=== PATIENT | female | born 1940 | race Caucasian/White ===

== ENCOUNTER 2016-11-28 07:50 | Day surgery (SDC) | payer OTHER ==
[2016-11-23 11:26] VITALS: BMI 23.6
[2016-11-28] MEDS ORDERED: PROPOFOL 20 ML ONE ×2 (07:54)
[2016-11-28 11:12] VITALS: BP 121/63; PULSE 71; TEMP 97.8
== END 2016-11-28 10:20 | disposition home or self-care (01) ==
LOC: FASU-ENDO 07:50
PROVIDERS: ATTEND Internal Medicine Gastroenterology
PROC: 0DJD8ZZ Inspection of Lower Intestinal Tract, Via Natural or Artificial Opening Endoscopic (ICD-10-PCS; principal; 2016-11-28 09:03)
DX: Z12.11 Encounter for screening for malignant neoplasm of colon (principal); Z80.0 Family history of malignant neoplasm of digestive organs; K57.30 Diverticulosis of large intestine without perforation or abscess without bleeding

== ENCOUNTER 2017-02-28 16:29 | Emergency (ER) | payer OTHER ==
[2017-02-28 16:44] VITALS: BP 142/89; PULSE 73; TEMP 97.9; BMI 24.0
[2017-02-28] MEDS ORDERED: ONDANSETRON 4 MG/2 ML VIAL IM ONE (16:58)
[2017-02-28] MEDS ORDERED: MECLIZINE HCL 25 MG TABLET (FP) PO ONE (16:58)
--- NOTE | 2017-02-28 16:59 | PDOC ---
History of Present Illness - General History Source: Patient Exam Limitations: No Limitations - History of Present Illness Initial Comments: 02/28/17 17:28 The patient is a 76 year old female with significant past medical history of vertigo, hypertension, hyperlipidemia, LBBB, diabetes, gerd, diverticulitis, sepsis of colon (03/22/16 - thought to be from diverticulitis, on IV antibiotics for 25 days with resolution), osteoporosis, hiatal hernia, right facial palsy, bilateral cataract, colonic polyps, compression fracture T4/T11 s/p vertebroplasties, and s/p left femur ORIF who presents to the ED with 1 day of vertigo exacerbation. Patient reports she was in her usual state of health when she started to feel dizzy, which she describes as the room spinning that is worsen upon lying supine, change in position, and movement of the head . She reports associated nausea and vomited once during presentation. States never experiencing associated nausea or vomiting in the past with her previous vertigo episodes. She also has complaints of a diffuse frontal headache that is secondary to the dizziness. Patient also reports 4 days ago, she accidentally dropped a tray filled with ice that landed on her right big toe. Patient sustained increasing pain, swelling, and black/blue discoloration of the right big toe. Patient reports applying ice to the area with minimal improvement. The patient denies fever, chills, cough, SOB, chest pain, abdominal pain, and diarrhea. Allergies: NKDA Social History: No alcohol, tobacco, or drug use reported. Past Surgical History: cardiac catheterization x2, left femur ORIF (07/2015), tubal ligation, extensive debridement of R shoulder, s/p vertebroplasties <Karen Parks - Last Filed: 02/28/17 17:28> <Farhat Guidry - Last Filed: 03/01/17 08:22> - General Chief Complaint: Lightheaded Stated Complaint: DIZZINESS Time Seen by Provider: 02/28/17 16:57 Past History <Karen Parks - Last Filed: 02/28/17 17:28> - Past Medical History Anemia: No Asthma: No Cancer: No Cardiac Disorders: Yes (L BBB, MITRAL REGURG) CVA: No COPD: No CHF: No Dementia: No Diabetes: Yes GI Disorders: Yes (GERD, COLON POLYPS , DIVERTICULOSIS) Disorders: Yes HTN: Yes Hypercholesterolemia: Yes HIV: No Liver Disease: No Seizures: No Thyroid Disease: Yes (HASIMOTO) Other medical history: OSTEOPOROSIS, VERTIGO, SEPSIS, RIGHT FACIAL PALSY, COMPRESSION FRACTURE FR - Surgical History Abdominal Surgery: No Appendectomy: No Cardiac Surgery: Yes (CARDIAC CATH X2 NEGATIVE) Cholecystectomy: No Lung Surgery: No Neurologic Surgery: No Orthopedic Surgery: No (LEFT FEMUR ORIF JUL 2015) - Psycho/Social/Smoking Cessation Hx Anxiety: No Suicidal Ideation: No Smoking Status: No Smoking History: Never smoked Have you smoked in the past 12 months: No Number of Cigarettes Smoked Daily: 0 Hx Alcohol Use: No Drug/Substance Use Hx: No Substance Use Type: None Hx Substance Use Treatment: No <Farhat Guidry - Last Filed: 03/01/17 08:22> - Past Medical History Allergies/Adverse Reactions: Allergies Allergy/AdvReac Type Severity Reaction Status Date / Time No Known Allergies Allergy Verified 02/28/17 16:32 Home Medications: Ambulatory Orders Atenolol [Tenormin -] 50 mg PO DAILY 10/01/14 Atorvastatin Ca [Lipitor] 10 mg PO HS 10/01/14 Aspirin [ASA -] 81 mg PO DAILY 08/10/15 Cyclosporine [Restasis] 1 each OU DAILY 08/10/15 Metformin HCl [Metformin HCl ER] 500 mg PO BID 08/10/15 Cholecalciferol (Vitamin D3) [Vitamin D3] 1,000 unit PO DAILY 07/14/16 [place]-3S/Dha/Epa/Fish Oil [Fish Oil 1,200 mg Softgel] 1 each PO DAILY 07/14/16 Calcium Carbonate [Calcium] 600 mg PO DAILY 02/28/17 Famotidine [Pepcid -] 40 mg PO PRN PRN 02/28/17 Lactobacillus Acidophilus [Acidophilus] 1 each PO DAILY 02/28/17 Lansoprazole [Prevacid -] 15 mg PO DAILY 02/28/17 Meclizine HCl [Antivert -] 1 - 2 tab PO TID PRN #30 tablet 02/28/17 Ondansetron [Zofran Odt -] 4 mg SL TID PRN #20 od.tablet 02/28/17 Review of Systems - Review of Systems Able to Perform ROS?: Yes Comments:: 02/28/17 17:28 CONSTITUTIONAL: Absent: fever, chills, diaphoresis, generalized weakness, malaise, loss of appetite HEENT: Absent: rhinorrhea, nasal congestion, throat pain, throat swelling, difficulty swallowing, mouth swelling, ear pain, eye pain CARDIOVASCULAR: Absent: chest pain, syncope, palpitations, irregular heart rate, lightheadedness , peripheral edema RESPIRATORY: Absent: cough, shortness of breath, dyspnea with exertion, orthopnea, wheezing, stridor, hemoptysis GASTROINTESTINAL: +nausea, vomiting Absent: abdominal pain, abdominal distension, diarrhea, constipation, melena, hematochezia GENITOURINARY: Absent: dysuria, frequency, urgency, hesitancy, hematuria, flank pain, genital pain MUSCULOSKELETAL: +right big toe pain and swelling Absent: myalgia SKIN: Absent: rash, itching, pallor NEUROLOGIC: +frontal headache, dizziness Absent: focal weakness or paresthesias, seizure, mental status changes, bladder or bowel incontinence PSYCHIATRIC: Absent: anxiety, depression, suicidal or homicidal ideation, hallucinations. <Karen Parks - Last Filed: 02/28/17 17:28> *Physical Exam - Vital Signs Last Vital Signs Temp Pulse Resp BP Pulse Ox 97.9 F 73 16 142/89 97 02/28/17 16:32 02/28/17 16:32 02/28/17 16:32 02/28/17 16:32 02/28/17 16:32 - Physical Exam Comments: 02/28/17 17:29 GENERAL: Well developed, well nourished. Awake and alert. In acute distress secondary to vertigo, which worsens with change in position and head movement. HEENT: Normocephalic, atraumatic. PERRLA, EOMI. Optic fundi benign. No conjunctival pallor. Sclera are non-icteric. Moist mucous membranes. Oropharynx is clear. No signs of congestion. No nystagmus. NECK: Supple. Full ROM. No JVD. Carotid pulses 2+ and symmetric, without bruits. No thyromegaly. No lymphadenopathy. CARDIOVASCULAR: Regular rate and rhythm. No murmurs, rubs, or gallops. Distal pulses are 2+ and symmetric. PULMONARY: No evidence of respiratory distress. Lungs clear to auscultation bilaterally. No wheezing, rales or rhonchi. ABDOMINAL: Soft. Non-tender. Non-distended. No rebound or guarding. No organomegaly. Normoactive bowel sounds. EXTREMITIES/MUSCULOSKELETAL: Limited movement of the right great toe, secondary to pain. Erythema, swelling, and tenderness of the right great toe without deformity. No other signs of trauma to the foot or ankle. No cyanosis. No clubbing. No calf tenderness. SKIN: Warm and dry. Normal capillary refill. No rashes. No jaundice. No skin injuries , abrasion, or lacerations. 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 Remainder of cranial nerves are intact. No focal sensory or motor deficits. Gait is only impaired by vertigo. PSYCHIATRIC: Cooperative. Good eye contact. Appropriate mood and affect. <Karen Parks - Last Filed: 02/28/17 17:28> - Vital Signs Last Vital Signs Temp Pulse Resp BP Pulse Ox 97.9 F 73 16 142/89 97 02/28/17 16:32 02/28/17 16:32 02/28/17 16:32 02/28/17 16:32 02/28/17 16:32 <Farhat Guidry - Last Filed: 03/01/17 08:22> ED Treatment Course - Medications Given in the ED: ED Medications Discontinued Medications Generic Name Dose Route Start Last Admin Trade Name Freq PRN Reason Stop Dose Admin Ondansetron HCl 4 mg 02/28/17 16:58 02/28/17 17:05 Zofran Injection IM 02/28/17 16:59 4 mg ONCE ONE Administration <Karen Parks - Last Filed: 02/28/17 17:28> Medical Decision Making - Medical Decision Making 03/01/17 08:18 Patient has been extensively worked up by ENT and neurology for similar symptoms in the past. She has had recent MRI in November 2016. She has attended a rehabilitation program for patients with vertigo, and performs home exercises to control symptoms. She has been taking no medication for her symptoms on the recommendation of her physician. She has no recent injury, URI or ALLERGY symptoms, earache or tinnitus, or decreased hearing. Patient much improved after administration of Zofran and meclizine. Nausea completely resolved, vertigo currently improved. Able to change positions and ambulate without discomfort or instability. X-ray shows nondisplaced oblique fracture proximal phalanx of the great toe. Toes jeffrey taped with interdigital padding for comfort. Recommended follow up with orthopedist. No evidence of skin disruption, abrasion, or laceration. No sign of infection or proximal erythema induration or tenderness. Patient fully ambulatory and in no distress upon discharge with her to follow-up as directed. <Farhat Guidry - Last Filed: 03/01/17 08:22> *DC/Admit/Observation/Transfer - Attestations Scribe Attestion: 02/28/17 17:29 Documentation prepared by Karen Parks, acting as medical claims representative for Farhat Bunch MD <Karen Parks - Last Filed: 02/28/17 17:28> - Discharge Dispostion Admit: No <Farhat Guidry - Last Filed: 03/01/17 08:22> Diagnosis at time of Disposition: Vertigo Fractured great toe Qualifiers: Encounter type: initial encounter Fracture type: closed Phalanx: proximal Fracture alignment: nondisplaced Laterality: right Qualified Code(s): S92.414A - Nondisplaced fracture of proximal phalanx of right great toe, initial encounter for closed fracture - Discharge Dispostion Disposition: HOME Condition at time of disposition: Stable - Prescriptions Prescriptions: Meclizine HCl [Antivert -] 1 - 2 tab PO TID PRN #30 tablet PRN Reason: Vertigo Ondansetron [Zofran Odt -] 4 mg SL TID PRN #20 od.tablet PRN Reason: Nausea And/Or Vomiting - Referrals Referrals: Willian Dewey MD [Staff Physician] - Arnulfo Gregg MD [Staff Physician] - - Patient Instructions Printed Discharge Instructions: DI for Vertigo, DI for Toe Fracture
[2017-02-28] MEDS ORDERED: ONDANSETRON 4 MG/2 ML VIAL ONE (17:00)
[2017-02-28] MEDS ORDERED: MECLIZINE HCL 25 MG TABLET (FP) ONE (17:07)
== END 2017-02-28 18:41 | disposition home or self-care (01) ==
LOC: FER 16:29
PROC: 3E033GC Introduction of Other Therapeutic Substance into Peripheral Vein, Percutaneous Approach (ICD-10-PCS; principal; 2017-02-28)
DX: R42 Dizziness and giddiness (principal); S92.414A Nondisplaced fracture of proximal phalanx of right great toe, initial encounter for closed fracture; W20.8XXA Other cause of strike by thrown, projected or falling object, initial encounter; Y93.89 Activity, other specified; Y92.9 Unspecified place or not applicable; I44.7 Left bundle-branch block, unspecified; I10 Essential (primary) hypertension; E78.5 Hyperlipidemia, unspecified; E11.9 Type 2 diabetes mellitus without complications; K21.9 Gastro-esophageal reflux disease without esophagitis; E06.3 Autoimmune thyroiditis
CPT/HCPCS: 73630-TC-RT; 96374; 99281-25